=== PATIENT | male | born 1970 | race African-American/Black ===

== ENCOUNTER 2017-01-25 14:36 | Emergency (ER) | payer SELFPAY ==
[~2017-01-25 14:36] MED LIST: ALBUTEROL17 GM INH; AMOXICILLIN PO; BENTYL20 MG PO; CLARITIN10 MG PO; FLAGYL PO; FLEXERIL10 MG PO; MEDROL PO; MOBIC PO; NO MEDICATIONS; PREDNISONE PO; ULTRAM PO; [UNRECOGNIZED DRUG - OTHER] PO
== END 2017-01-25 17:00 | disposition home or self-care (01) ==
LOC: CFTX 14:36 → CED 14:36 → CFTX 16:59
DX: L73.2 Hidradenitis suppurativa (principal); J45.909 Unspecified asthma, uncomplicated; F17.200 Nicotine dependence, unspecified, uncomplicated; Z88.8 Allergy status to other drugs, medicaments and biological substances
CPT/HCPCS: 99283